=== PATIENT | male | born 2000 | race Caucasian/White ===

== ENCOUNTER 2023-08-29 12:15 | Emergency (ER) | payer BC ==
[2023-08-29 12:30] VITALS: RESP 18; TEMP 97.6
--- NOTE | 2023-08-29 13:33 | ED ---
Upper Extremity HPI - General Source: patient, RN notes reviewed Mode of arrival: ambulatory Limitations: no limitations <Abi Irving - Last Filed: 08/29/23 13:33> <Alok García - Last Filed: 08/29/23 15:24> - General Chief Complaint: Extremity Injury, Upper Stated Complaint: Left finger laceration Time Seen by Provider: 08/29/23 13:32 - History of Present Illness Initial Comments: This is a 22-year-old male who presents to the emergency department for a laceration to the left second finger. He sustained this at work earlier today. Bleeding and pain are controlled. Unsure when his last tetanus vaccine was. (Abi Irving) Patient 22-year-old male presented to the emergency room today with chief complaint of laceration to the left index finger that occurred approximately 3 hours ago. Patient does admit that he was using a utility knife to cut a piece of baseboard when it slipped causing a laceration to the left index finger. He states he has full range of motion. He states tetanus is up-to-date. Patient denies any other complaints or any other symptoms. (Alok García) - Related Data Allergies Allergy/AdvReac Type Severity Reaction Status Date / Time No Known Allergies Allergy Verified 08/29/23 12:20 Review of Systems ROS Other: All systems not noted in ROS Statement are negative. <Abi Irving - Last Filed: 08/29/23 13:33> ROS Other: All systems not noted in ROS Statement are negative. <Alok García - Last Filed: 08/29/23 15:24> ROS Statement: Those systems with pertinent positive or pertinent negative responses have been documented in the HPI. Past Medical History Past Medical History: No Reported History History of Any Multi-Drug Resistant Organisms: None Reported Past Surgical History: No Surgical Hx Reported Past Psychological History: No Psychological Hx Reported Smoking Status: Never smoker Past Alcohol Use History: None Reported Past Drug Use History: None Reported <Abi Irving - Last Filed: 08/29/23 13:33> General Exam Limitations: no limitations <Abi Irving - Last Filed: 08/29/23 13:33> <Alok García - Last Filed: 08/29/23 15:24> - General Exam Comments Initial Comments: Visual Physical Exam Vital signs reviewed General: Well-appearing, nontoxic, no acute distress. Head: Normocephalic, atraumatic Eyes: PERRLA, EOMI ENT: Airway patent Chest: Nonlabored breathing Skin: No visual rash, normal skin tone Neuro: Alert and oriented 3 Musculoskeletal: No gross abnormalities (Abi Irving) General: The patient is awake and alert, in no distress, and does not appear acutely ill. Neck: The neck is supple, there is no tenderness or JVD. Cardiovascular: There is a regular rate and rhythm. No murmur, rub or gallop is appreciated. Respiratory: Lungs are clear to auscultation, respirations are non-labored, breath sounds are equal. No wheezes, stridor, rales, or rhonchi. Musculoskeletal: Full range of motion. Sensation intact. Cap refill less than 2 seconds. Strength 5/5. Neurological: A&O x 3. CN II-XII intact, There are no obvious motor or sensory deficits. Coordination appears grossly intact. Speech is normal. Skin: 1.5 cm linear laceration to the lateral aspect of the left index finger at the PIP joint. Psychiatric: Normal mood and affect. (Alok García) Course Vital Signs 08/29/23 08/29/23 12:17 15:03 Temperature 97.6 F 97.6 F Pulse Rate 63 81 Respiratory 18 18 Rate Blood Pressure 122/59 133/81 O2 Sat by Pulse 100 100 Oximetry Procedures <Alok García - Last Filed: 08/29/23 15:24> - Procedures Initial comment: 1.5 cm linear laceration to the lateral aspect of the left index finger at the PIP joint. The skin was anesthetized with 1% lidocaine. The laceration was then cleansed with Betadine and irrigated with normal saline. The wound was inspected, and there was no evidence of injury to deep structures. No foreign body was noted in the wound. A total of 4 skin sutures were placed utilizing 5-0 nylon. (Alok García) Medical Decision Making <Abi Irving - Last Filed: 08/29/23 13:33> <Alok García - Last Filed: 08/29/23 15:24> - Medical Decision Making I performed the QuickNote portion of this chart. Signed Abi Irving PA-C. (Abi Irving) History was obtained from patient/Nurse/Family/ ___ Initial assessment and chief complaint: Finger laceration Chronic conditions affecting care: None Social determinants affecting care: None 22-year-old male presented to the emergency room today with a chief complaint of laceration to left index finger. He does admit tetanus is up-to-date. Patient has full range of motion. No numbness or tingling. Strength 5/5. Laceration was clean closed here in emergency room. He tolerated well. Advised to have sutures removed in 7-10 days. Advised watch for any signs of infection. Advised return for any other concerns. He states understanding and is agreement with plan. (Alok García) Disposition <Abi Irving - Last Filed: 08/29/23 13:33> Is patient prescribed a controlled substance at d/c from ED?: No Time of Disposition: 15:23 <Alok García - Last Filed: 08/29/23 15:24> Clinical Impression: Finger laceration Disposition: HOME SELF-CARE Condition: Good Instructions (If sedation given, give patient instructions): Finger Laceration (ED) Additional Instructions: Please return to the emergency room in 7-10 days to have sutures removed. Please watch for any signs of infection which may include increased pain, swelling, redness, fever or chills. Please return to emergency room for any signs of infection do occur. Please use clean soap and water over the area to prevent scabbing over your stitches. Please leave wound covered for the first 24-48 hours and then leave wound open to air. Please return to the emergency room for any other concerns. Referrals: None,Stated [Primary Care Provider] - 1-2 days
[2023-08-29] MEDS ORDERED: DIPH,PERTUS(ACELL)TETVAC-LF 0.5 ML VIAL IM ONE (13:34)
[2023-08-29 15:19] VITALS: BP 133/81; PULSE 81
== END 2023-08-29 15:33 | disposition home or self-care (01) ==
LOC: EC 12:15
DX: S61.211A Laceration without foreign body of left index finger without damage to nail, initial encounter (principal); W26.0XXA Contact with knife, initial encounter
CPT/HCPCS: 12001; 90471; 99283